=== PATIENT | male | born 1980 | race Caucasian/White ===

== ENCOUNTER 2016-11-07 06:35 | Day surgery (SDC) | payer OTHER ==
[~2016-11-07 06:35] MED LIST: ANCEF/STERILE WATER 2 GM/20 ML 2 GM/20 ML SYRINGE IV NR; NACL 0.9% 1000 ML 1,000 ML IV SCH
[2016-11-07 07:43] LABS: Basophils % (Auto) 0.7 % (0.0-1.8); Eosinophils % (Auto) 7.6 % (0.0-4.3); Hematocrit 42.8 % (35.5-45.6); Hemoglobin 14.1 gm/dl (11.8-15.2); Mean Corpuscular HGB Conc 33 % (32-34); Mean Corpuscular Volume 75 fl (84-94); Platelet Count 300 K/mm3 (140-440); Red Blood Count 5.69 M/mm3 (3.65-5.03); Red Cell Distribution Width 14.9 % (13.2-15.2); White Blood Count 10.2 K/mm3 (4.5-11.0)
[2016-11-07 07:44] LABS: Mean Corpuscular Hemoglobin 25 pg (28-32)
[2016-11-07 07:51] LABS: INR 1.07 (0.87-1.13)
[2016-11-07 07:52] LABS: Partial Thromboplastin Time 32.9 Sec. (24.2-36.6)
[2016-11-07 07:55] LABS: Anion Gap 17 mmol/L; BUN/Creatinine Ratio 11.25; Blood Urea Nitrogen 9 mg/dL (9-20); Calcium 9.2 mg/dL (8.4-10.2); Carbon Dioxide 25 mmol/L (22-30); Chloride 103.6 mmol/L (98-107); Glucose 139 mg/dL (75-100); Potassium 4.2 mmol/L (3.6-5.0); Sodium 141 mmol/L (137-145)
[2016-11-07] MEDS ORDERED: NACL 0.9% 500 ML 500 ML IV SCH (08:00)
[2016-11-07] MEDS ORDERED: ANCEF/STERILE WATER 2 GM/20 ML 2 GM/20 ML SYRINGE IV ONE (08:10)
[2016-11-07] MEDS ORDERED: XYLOCAINE 2% INFILTRATI ONE (08:10)
[2016-11-07] MEDS ORDERED: HEPARIN/NS 5000 UNIT/500ML(CATH LAB) 1,000 ML IR ONE (08:10)
[2016-11-07] MEDS: VERSED ONE ×3 (08:53→08:59)
[2016-11-07] MEDS: SUBLIMAZE ONE ×3 (08:54→09:12)
--- NOTE | 2016-11-07 10:26 | Short Stay Summary ---
Short Stay Documentation Date of service: 11/07/16 - History H&P: obtained from office - Allergies and Medications Current Medications: Allergies No Known Allergies Allergy (Unverified 10/31/13 15:54) Home Medications Medication Instructions Recorded Confirmed Last Taken Type Rivaroxaban [Xarelto] 20 mg PO DAILY 11/07/16 11/07/16 11/06/16 History 20mg Active Medications Cefazolin Sodium (Ancef/Sterile Water 2 Gm/20 Ml) 2 gm in 20 mls @ 80 mls/hr IV PREOP NR PRN Reason: Protocol Stop: 11/07/16 23:59 Sodium Chloride (Nacl 0.9% 1000 Ml) 1,000 mls @ 42 mls/hr IV DIRECT CAIN Sodium Chloride (Nacl 0.9% 500 Ml) 500 mls @ 50 mls/hr IV DIRECT CAIN Last Admin: 11/07/16 08:22 Dose: 50 mls/hr - Brief post op/procedure progress note Date of procedure: 11/07/16 Pre-op diagnosis: Compression of vein Post-op diagnosis: same Procedure: BLE venogram with stent placement Anesthesia: local Surgeon: CHEYANNE DE LA GARZA Estimated blood loss: minimal Pathology: none Condition: stable - Disposition Condition at discharge: Good Disposition: DISCHARGED TO HOME OR SELFCARE Short Stay Discharge Plan Activity: advance as tolerated Weight Bearing Status: Weight Bear as Tolerated Diet: regular Wound: keep clean and dry, per your surgeon's advice Follow up with: LUCAS RUIZ MD [Primary Care Provider] - 7 Days
--- NOTE | 2016-11-07 10:34 | Operative Report ---
Operative Report Operative Report: EXAM: BILATERAL LOWER EXTREMITY VENOGRAM CLINICAL INDICATION: COMPRESSION OF VEIN, RECURRENT LOWER EXTREMITY DVT DATE: 11/07/2016 PROCEDURE: Following an expiration of the risks, benefits and alternatives; written informed consent was obtained. The patient was brought to the angiographic suite and placed in supine position on the examination table. His bilateral legs to the groin were prepped and draped in usual sterile fashion. 1 % lidocaine was used for anesthesia. Initial ultrasound evaluation of his legs demonstrated patent bilateral common femoral veins. Scattered areas of nonocclusive thrombus is present within the distal femoral veins. Under ultrasound guidance, the right common femoral vein was cannulated with a 7 cm 18-gauge needle. A 0.035 guidewire was advanced centrally under fluoroscopy. The needle was removed and a 5 Ghanaian sheath placed over the guidewire. Access to the left common femoral vein was obtained in a similar fashion and an additional 5 Ghanaian sheath placed in the left groin. Venography was performed through the sheaths. This demonstrated significant compression of the left common iliac vein. There is long segment stenosis involving the right common iliac vein. A decision was made to further evaluate with intravascular ultrasound. Intravascular ultrasound was inserted through the right sheath. Intravascular ultrasound was performed in the IVC, right common iliac vein, right external iliac vein and right common femoral vein. A 60% stenosis is present within the right common iliac vein beginning distal to the confluence and extending for approximately 4-5 cm. Vascular ultrasound was then inserted through the right sheath. Intravascular ultrasound was performed from the IVC, left common iliac vein, left external iliac vein and left common femoral vein. The IVC is widely patent. A focal 80 % stenosis is present within the left common iliac vein just distal to the anastomosis. There is prominent prestenotic dilatation and tortuosity of the distal left common iliac vein. The left external iliac vein is patent. The left common femoral vein is patent. Given the degree of stenosis stenosis and recurrent DVT secondary to extrinsic compression of the veins, a decision was made to place stents across these lesions. An 18 x 90 Wallstent was advanced through the left sheath. A second 18 x 90 Wallstent was advanced through the right sheath. The stents were deployed in kissing fashion with the distal ends of the stent at the bifurcation. The stents were then seated using 16 mm x 40 mm balloons. Post stent placement imaging demonstrated reduction of the right common iliac vein stenosis to less than 10%. There was reduction of the left common iliac vein stenosis to less than 10%. The catheters, guidewires and sheaths were removed and hemostasis achieved using manual compression. Compression dressings were then also applied. The patient tolerated the procedure well. There were no immediate post procedure complications. Conscious sedation was performed under the guidance of radiologic nursing. Continuous cardiopulmonary monitoring was utilized. IMPRESSION: 1) Bilateral lower extremity venogram demonstrating significant compression of the left common iliac vein and stenosis involving the right common iliac vein. 2) Intravascular ultrasound performed in the IVC, left common iliac vein, left external iliac vein and left common femoral vein, right common iliac vein, right external iliac vein and right common femoral vein demonstrating 80% stenosis involving the left common iliac vein and 60% long segment stenosis involving the right common iliac vein. 3) Stent placement in bilateral common iliac veins as described. Residual less than 10% stenosis.
[2016-11-07 11:09] VITALS: BP 127/85
--- NOTE | 2016-11-07 22:05 | Vascular Lab Report ---
MISCELLANEOUS VESSEL IDENTIFICATION: COMMENTS ON THE SCAN: The bilateral superficial femoral vein was identified and under real-time ultrasound guidance was cannulated. IMPRESSION: Successful ultrasound guided vein cannulation.
== END 2016-11-07 11:45 | disposition home or self-care (01) ==
LOC: OPU 06:35
PROVIDERS: ATTEND Radiology Diagnostic Radiology
DX: I87.1 Compression of vein (principal); I82.513 Chronic embolism and thrombosis of femoral vein, bilateral; I87.333 Chronic venous hypertension (idiopathic) with ulcer and inflammation of bilateral lower extremity
CPT/HCPCS: 36415; 37238; 37239; 37252; 37253; 75822; 76937; 80048; 85025; 85610; 85730; C1725; C1753; C1769; C1894; J0690; J1644; J2250; J3010; J7040; Q9967

== ENCOUNTER 2016-12-03 09:33 | Outpatient (CLI) | payer OTHER ==
--- NOTE | 2016-12-05 07:05 | Vascular Lab Report ---
Left Lower Extremity Venous Duplex Study: Reason for Exam: Pain and swelling of the left lower extremity. Comments on the Right: Left leg pain chronic nonocclusive deep venous thrombosis noted in the femoral vein. The remaining veins visualized are freely compressible without evidence of internal echogenicity. Spontaneous and phasic flow is present proximally. Comments on the Left: Acute occlusive deep venous thrombosis is noted in the popliteal vein that is extending through the entire femoral vein into the common femoral vein and deep femoral vein.. The remaining veins visualized are freely compressible without evidence of internal echogenicity. Spontaneous and phasic flow is absent proximally. Impression: Bilateral deep venous thrombosis
== END 2016-12-03 09:34 | disposition home or self-care (01) ==
LOC: EDBD → VAS 09:33 → SPVWC 09:33 → VAS 09:34 → EDBD 10:00
PROVIDERS: ATTEND Internal Medicine Hematology
DX: I82.511 Chronic embolism and thrombosis of right femoral vein (principal); I82.432 Acute embolism and thrombosis of left popliteal vein

== ENCOUNTER 2016-12-23 12:54 | Outpatient (CLI) | payer OTHER ==
--- NOTE | 2016-12-24 15:21 | Vascular Lab Report ---
LOWER EXTREMITY VENOUS DUPLEX: REASON FOR EXAM: Acute DVT.. COMMENTS ON THE RIGHT: Chronic nonocclusive deep venous thrombus in the right popliteal and superficial femoral vein. The remaining veins visualized are freely compressible without evidence of internal echogenicity. Spontaneous and phasic flow is diminished proximally. COMMENTS ON THE LEFT: There is extensive nonocclusive chronic deep venous thrombus in the left common femoral vein, superficial femoral vein, deep femoral vein, popliteal vein, and proximal left gastrocnemius vein with some acute on chronic thrombus in the common femoral vein, superficial femoral vein, deep femoral vein, and popliteal vein. The remaining veins visualized are freely compressible without evidence of internal echogenicity. Spontaneous and phasic flow is diminished proximally. IMPRESSION: Chronic right lower extremity deep venous thrombus. Acute on chronic left lower extremity deep venous thrombus. Since the last ultrasound, the clot is now nonocclusive.
== END 2016-12-23 12:55 | disposition home or self-care (01) ==
LOC: VAS 12:54
PROVIDERS: ATTEND Internal Medicine Hematology
DX: I82.403 Acute embolism and thrombosis of unspecified deep veins of lower extremity, bilateral (principal)
CPT/HCPCS: 93970

== ENCOUNTER 2017-02-05 08:32 | Outpatient (CLI) | payer OTHER ==
--- NOTE | 2017-02-06 11:58 | Vascular Lab Report ---
LOWER EXTREMITY VENOUS DUPLEX: REASON FOR EXAM: Pain. COMMENTS ON THE RIGHT: Nonocclusive thrombus is noted starting in the posterior tibial and peroneal veins, and extending through the popliteal, femoral and common femoral veins.. The remaining veins visualized are freely compressible without evidence of internal echogenicity. Spontaneous and phasic flow is present proximally. COMMENTS ON THE LEFT: Nonocclusive thrombus is noted starting in the posterior tibial and peroneal veins and extending through the popliteal, femoral and into common femoral vein. Superficial phlebitis is noted in the greater saphenous vein.. The remaining veins visualized are freely compressible without evidence of internal echogenicity. Spontaneous and phasic flow is present proximally. IMPRESSION: Bilateral chronic deep venous thrombosis
== END 2017-02-05 08:33 | disposition home or self-care (01) ==
LOC: VAS 08:32
PROVIDERS: ATTEND Internal Medicine Hematology
DX: I82.543 Chronic embolism and thrombosis of tibial vein, bilateral (principal)
CPT/HCPCS: 93970

== ENCOUNTER 2017-02-13 08:41 | Day surgery (SDC) | payer OTHER ==
[2017-02-13 09:30] LABS: Basophils % (Auto) 0.5 % (0.0-1.8); Eosinophils % (Auto) 3.1 % (0.0-4.3); Hematocrit 41.6 % (35.5-45.6); Hemoglobin 13.7 gm/dl (11.8-15.2); Mean Corpuscular HGB Conc 33 % (32-34); Mean Corpuscular Volume 75 fl (84-94); Platelet Count 342 K/mm3 (140-440); Red Blood Count 5.58 M/mm3 (3.65-5.03); Red Cell Distribution Width 14.2 % (13.2-15.2); White Blood Count 8.3 K/mm3 (4.5-11.0)
[2017-02-13 09:33] LABS: Mean Corpuscular Hemoglobin 25 pg (28-32)
[2017-02-13 09:45] LABS: Anion Gap 17 mmol/L; BUN/Creatinine Ratio 11.42; Blood Urea Nitrogen 8 mg/dL (9-20); Calcium 9.2 mg/dL (8.4-10.2); Carbon Dioxide 25 mmol/L (22-30); Chloride 100.7 mmol/L (98-107); Glucose 148 mg/dL (75-100); Potassium 3.9 mmol/L (3.6-5.0); Sodium 139 mmol/L (137-145)
[2017-02-13] MEDS ORDERED: NACL 0.9% 500 ML 500 ML IV SCH (10:00)
[2017-02-13] MEDS ORDERED: HEPARIN/NS 5000 UNIT/500ML(CATH LAB) 500 ML IR ONE (10:25)
[2017-02-13] MEDS ORDERED: HEPARIN 10,000 UNITS/10 ML ONE (10:26)
[2017-02-13] MEDS ORDERED: XYLOCAINE 2% INFILTRATI ONE (10:26)
[2017-02-13] MEDS ORDERED: ANCEF/STERILE WATER 2 GM/20 ML 2 GM/20 ML SYRINGE IV ONE (10:26)
[2017-02-13] MEDS ORDERED: VERSED ONE (10:26)
[2017-02-13] MEDS ORDERED: SUBLIMAZE ONE (10:26)
[2017-02-13 13:45] VITALS: BP 111/63
--- NOTE | 2017-02-13 14:57 | Short Stay Summary ---
Short Stay Documentation Date of service: 02/13/17 - History Principal diagnosis: BLE DVT and venous compression H&P: obtained from office - Allergies and Medications Current Medications: Allergies No Known Allergies Allergy (Verified 12/03/16 18:20) Home Medications Medication Instructions Recorded Confirmed Last Taken Type Enoxaparin [Lovenox] 100 mg SQ QAM #30 syringe 12/05/16 02/13/17 02/12/17 Rx Enoxaparin [Lovenox] 120 mg SQ QPM #30 syringe 12/05/16 02/13/17 02/12/17 Rx HYDROcodone/APAP 10-325 [[place] 1 each PO BID PRN #20 tablet 12/05/16 02/13/17 Rx 10-325 mg TAB] - Brief post op/procedure progress note Date of procedure: 02/13/17 Pre-op diagnosis: BLE DVT and venous compression Post-op diagnosis: same Procedure: Left lower extremity venogram with venoplasty Anesthesia: local Surgeon: CHEYANNE LOPEZ Estimated blood loss: minimal Pathology: none Condition: stable - Disposition Disposition: - TO HOME OR SELFCARE Short Stay Discharge Plan Activity: advance as tolerated Weight Bearing Status: Weight Bear as Tolerated Diet: regular Wound: keep clean and dry, per your surgeon's advice Additional Instructions: No driving or activities requiring mental alertness for 24 hours. Resume diet and medications as prior to admission. May return to work ThursdayFebruary 16November shower ThursdayFebruary 14. Report to MD any redness, swelling, bleeding, drainage or fever. Follow up with Dr. Lopez as needed. Follow up with: LUCAS RUIZ MD [Primary Care Provider] - 7 Days Forms: Work/School Excuse Out Patient
--- NOTE | 2017-02-13 15:02 | Operative Report ---
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 The patient was brought to the angiographic suite and placed in prone position on the examination table. Initial ultrasound evaluation of his left popliteal fossa demonstrated a patent left popliteal vein. The left popliteal fossa was prepped and draped in the usual sterile fashion. 1% lidocaine was used for anesthesia. Under ultrasound guidance, the left popliteal vein was cannulated with a 7 cm 18 -gauge needle. A 0.035 guidewire was then advanced centrally under fluoroscopy. The needle was removed and a 5 Australian sheath placed over the guidewire. Venography performed through the sheath demonstrated chronic chronic DVT with multiple areas of narrowing in excess of 70-80%. This extends throughout the entire superficial femoral vein into the common femoral vein. A 4 Australian vertebral catheter was advanced over the guidewire into the common femoral vein. Digital subtraction venography was performed which demonstrates a patent although narrowed common femoral vein. Previously placed stents in the left external iliac vein and left common iliac vein are occluded. There are massive collaterals directing flow around the occlusions. No stasis of flow is identified. Multiple attempts to re-cannulate the occluded stents were unsuccessful. The guidewire was then advanced to the margin of the stents and the catheter removed. Venoplasty was performed throughout the common femoral vein and superficial femoral vein using a 9 mm x 60 mm balloon insufflated to 4-6 arina at multiple locations. Post venoplasty imaging demonstrated reduction of the stent will areas of stenoses to proximally 20% with brisk luminal flow throughout the superficial femoral vein and common femoral vein. At this point, the catheters, guidewires and sheaths were removed and hemostasis achieved using manual compression. A compression dressing was placed which will be removed by the patient this evening. The patient tolerated the procedure well. There were no immediate post procedure complications. Conscious sedation was performed under the guidance of radiologic nursing. Continuous cardiopulmonary monitoring was utilized. IMPRESSION: 1) Left lower extremity venogram from the popliteal fossa and a catheter placed in the common femoral vein demonstrates multiple areas of chronic DVT throughout all visualized veins with scattered areas of narrowing in excess of 70-80%. 2) There is occlusion of the patient's previously placed stents within his common iliac vein and external iliac vein. The patient will be rescheduled for a procedure to length in the stents from a internal jugular vein approach. 3) Venoplasty of the common femoral vein and superficial femoral vein with residual 20% stenosis and a brisk luminal flow.
--- NOTE | 2017-02-13 15:16 | Vascular Lab Report ---
MISCELLANEOUS VESSEL IDENTIFICATION: COMMENTS ON THE SCAN: The left popliteal vein was identified and under real-time ultrasound guidance was cannulated. IMPRESSION: Successful ultrasound guided vein cannulation.
[2017-02-14] MEDS ORDERED: HEPARIN 10,000 UNITS/10 ML ONE (03:12)
[2017-02-14] MEDS ORDERED: HEPARIN/NS 5000 UNIT/500ML(CATH LAB) 500 ML IR ONE ×2 (03:12→03:20)
[2017-02-14] MEDS ORDERED: XYLOCAINE 2% INFILTRATI ONE (03:13)
[2017-02-14] MEDS ORDERED: CALAN ONE (03:13)
[2017-02-14] MEDS ORDERED: NITROGLYCERIN SYRINGE 0 ML ONE (03:13)
[2017-02-14] MEDS ORDERED: VERSED ONE (03:17)
[2017-02-14] MEDS ORDERED: SUBLIMAZE ONE (03:18)
[2017-02-14] MEDS ORDERED: NACL 0.9% 500 ML ONE (03:30)
== END 2017-02-13 14:05 | disposition home or self-care (01) ==
LOC: EDBD → CATHLABREC 08:41
PROVIDERS: ATTEND Radiology Diagnostic Radiology
DX: I82.513 Chronic embolism and thrombosis of femoral vein, bilateral (principal); I87.333 Chronic venous hypertension (idiopathic) with ulcer and inflammation of bilateral lower extremity; I87.1 Compression of vein; I87.2 Venous insufficiency (chronic) (peripheral); I82.422 Acute embolism and thrombosis of left iliac vein; Z98.890 Other specified postprocedural states
CPT/HCPCS: 36415; 37248; 75820; 76937; 80048; 85025; C1725; C1751; C1769; C1894; J0690; J1644; J2250; J3010; J7040; Q9967

== ENCOUNTER 2017-02-20 06:20 | Day surgery (SDC) | payer OTHER ==
[2017-02-20] MEDS ORDERED: NACL 0.9% 500 ML 500 ML IV SCH (07:00)
[2017-02-20 08:49] LABS: Basophils % (Auto) 0.5 % (0.0-1.8); Eosinophils % (Auto) 5.4 % (0.0-4.3); Hematocrit 40.6 % (35.5-45.6); Hemoglobin 13.4 gm/dl (11.8-15.2); Mean Corpuscular HGB Conc 33 % (32-34); Mean Corpuscular Volume 74 fl (84-94); Platelet Count 276 K/mm3 (140-440); Red Blood Count 5.49 M/mm3 (3.65-5.03); Red Cell Distribution Width 14.3 % (13.2-15.2)
[2017-02-20 08:56] LABS: Mean Corpuscular Hemoglobin 25 pg (28-32)
[2017-02-20 08:59] LABS: INR 1.1 (0.87-1.13); Partial Thromboplastin Time 33.7 Sec. (24.2-36.6)
[2017-02-20 09:07] LABS: Anion Gap 18 mmol/L; BUN/Creatinine Ratio 12.85; Blood Urea Nitrogen 9 mg/dL (9-20); Calcium 8.7 mg/dL (8.4-10.2); Carbon Dioxide 24 mmol/L (22-30); Chloride 102.4 mmol/L (98-107); Glucose 165 mg/dL (75-100); Potassium 4.2 mmol/L (3.6-5.0); Sodium 140 mmol/L (137-145)
[2017-02-20] MEDS ORDERED: HEPARIN/NS 5000 UNIT/500ML(CATH LAB) 500 ML IR ONE ×2 (10:26→11:57)
[2017-02-20] MEDS ORDERED: ANCEF/STERILE WATER 2 GM/20 ML 2 GM/20 ML SYRINGE IV ONE (10:27)
[2017-02-20] MEDS: XYLOCAINE 2% INFILTRATI ONE ×2 (10:43→11:01)
[2017-02-20] MEDS: VERSED ONE ×2 (10:44→10:49)
[2017-02-20] MEDS: SUBLIMAZE ONE ×5 (10:44→12:33)
[2017-02-20] MEDS: HEPARIN 10,000 UNITS/10 ML ONE ×2 (10:54→11:52)
[2017-02-20] MEDS ORDERED: DILAUDID ONE (11:02)
[2017-02-20] MEDS: VERSED IV ONE ×3 (11:19→12:34)
[2017-02-20] MEDS ORDERED: NARCAN 2 MG/2 ML ONE (11:24)
[2017-02-20] MEDS ORDERED: ROMAZICON IV ONE (11:25)
[2017-02-20] MEDS ORDERED: NORCO 5/325 PO ONE (14:06)
[2017-02-20 14:14] VITALS: BP 114/69
--- NOTE | 2017-02-20 15:10 | Short Stay Summary ---
Short Stay Documentation Date of service: 02/20/17 - History Principal diagnosis: Venous compression H&P: obtained from office - Allergies and Medications Current Medications: Allergies No Known Allergies Allergy (Verified 12/03/16 18:20) Home Medications Medication Instructions Recorded Confirmed Last Taken Type Enoxaparin [Lovenox] 100 mg SQ QAM #30 syringe 12/05/16 02/20/17 02/19/17 Rx Enoxaparin [Lovenox] 120 mg SQ QPM #30 syringe 12/05/16 02/20/17 02/19/17 Rx HYDROcodone/APAP 10-325 [[place] 1 each PO BID PRN #20 tablet 12/05/16 02/20/17 Rx 10-325 mg TAB] Active Medications Cefazolin Sodium (Ancef/Sterile Water 2 Gm/20 Ml) 2 gm in 20 mls @ 80 mls/hr IV PREOP NR PRN Reason: Protocol Stop: 02/20/17 23:59 Sodium Chloride (Nacl 0.9% 500 Ml) 500 mls @ 50 mls/hr IV DIRECT CAIN Last Admin: 02/20/17 08:49 Dose: 50 mls/hr - Brief post op/procedure progress note Date of procedure: 02/20/17 Pre-op diagnosis: Venous compression Post-op diagnosis: same Procedure: Venogram and venoplasty Anesthesia: local Surgeon: CHEYANNE DE LA GARZA Estimated blood loss: minimal Pathology: none Condition: stable - Disposition Condition at discharge: Good Disposition: DC-01 TO HOME OR SELFCARE Short Stay Discharge Plan Activity: advance as tolerated Weight Bearing Status: Weight Bear as Tolerated Diet: regular Wound: keep clean and dry, per your surgeon's advice Follow up with: LUCAS RUIZ MD [Primary Care Provider] - 7 Days Forms: Work/School Excuse Out Patient, Post Arteriogram Instruct
--- NOTE | 2017-02-20 15:20 | Operative Report ---
Operative Report Operative Report: EXAM: ULTRASOUND AND FLUOROSCOPIC GUIDED VENOGRAM OF THE PELVIC VEINS, VENOPLASTY CLINICAL INDICATION: PATIENT WITH EXTRINSIC COMPRESSION INVOLVING PREDOMINANTLY HIS LEFT COMMON ILIAC VEIN RESULTING IN SUBSEQUENT OCCLUSION OF HIS LEFT COMMON ILIAC VEIN AND LEFT EXTERNAL ILIAC VEIN DESPITE PREVIOUSLY PLACED STENTS. DATE: 02/20/2017 PROCEDURE: Following an explanation of the risks, benefits and alternatives; written informed consent was obtained. The patient was brought to the injury graphic suite and placed in supine position on the examination table. Initial ultrasound evaluation of his right neck and bilateral groins devastated a widely patent right internal jugular vein and bilateral common femoral veins. The patient's right neck and bilateral groins were prepped and draped in the usual sterile fashion. 1% lidocaine was used for anesthesia. Under ultrasound guidance, the right internal jugular vein was cannulated with a 7 cm 18-gauge needle. A 0.035 guidewire was advanced into the IVC under fluoroscopy and the needle exchanged for a 5 Israeli sheath. A 4 Israeli vertebral catheter was then advanced over the guidewire and together the guidewire and catheter were advanced into the infrarenal IVC. Venography was performed for anatomic localization. Fluoroscopic images demonstrated previously placed stents within the common iliac and external iliac veins bilaterally. The left stent and a straight significant compression along the superior aspect of the stent. The vertebral catheter and guidewire were then advanced towards the left side. The guidewire and catheter advanced alongside of the previously placed stent. Angiography was performed which demonstrates extensive collateral formation however, there is complete occlusion of previously placed stents with chronic appearing thrombus. Attempt to cannulate the proximal end of the stent using the vertebral catheter and guidewire were unsuccessful therefore decision was made to access the left groin. Under ultrasound guidance, the left common femoral vein was cannulated with a 7 cm 18-gauge needle. A 0.035 guidewire was advanced centrally under fluoroscopy and the needle exchanged for a 5 Israeli vascular sheath. A 4 Israeli vertebral catheter was then advanced over the guidewire and together the guidewire and catheter were advanced as distally as a would go. Digital subtraction venography performed through the sheath demonstrates complete occlusion of the previously placed stent. There is extensive pelvic collateral formation with collaterals nearly the size of the galena iliac veins. Multiple attempts to cannulate the occluded distal end of the stent were unsuccessful. Returning to the internal jugular vein sheath, the 5 Israeli sheath was exchanged for a 10 Israeli 30 cm sheath through which a 6 Israeli MPA guide cath and 0.035 guidewire were advanced over the wire under fluoroscopy. MPA guide cath was advanced to the Of the thrombus from the proximal end of the stent. The guidewire was advanced minimally into the thrombus however, there was significant herniation. A decision was made to place a 7 Israeli sheath through the 10 Israeli sheath to allow greater support. Once this was done, the MPA guide cath was advanced and the guidewire advanced into the thrombus. The MPA guide cath was removed and a 0.035 Trailblazer catheter advanced over the guidewire. Together the Trailblazer catheter and 0.035 guidewire were then manipulated some degree of difficulty through the thrombus into the common femoral vein. Venography was performed which demonstrates intraluminal positioning. The 0.035 guidewire was exchanged for a 0.018 guidewire and contrast was injected through a 2 week while pulling back the Trailblazer catheter. This demonstrated that the catheter and guidewire were within the lumen and within the central aspect of the stents. Venography was then performed in the left common iliac vein using a 5 mm x 80 mm balloon. The balloon would not advance into the left external iliac vein given the tortuosity of the vasculature At this point, the catheters, guidewires and she's were removed and hemostasis achieved using manual compression. Compression dressings were also placed in the groin. The patient tolerated the procedure well. There were no immediate post procedure competitions. Conscious sedation was performed under the guidance of radiologic nursing. Continuous cardiopulmonary monitoring was utilized. IMPRESSION: 1) Pelvic venogram with catheter placement in the IVC, left common iliac vein, left common femoral vein demonstrating complete occlusion of previously placed stents with extrinsic compression of the left common iliac vein. 2) Cannilization of the previously placed stents as described. 3) Venoplasty of the left common iliac vein as described. 4) Given the extensive length and complexity of the procedure, the patient will need to return in approximately 2 months for additional dilatation of his left iliac veins. The patient remains on anticoagulation
--- NOTE | 2017-02-23 13:50 | Vascular Lab Report ---
MISCELLANEOUS VESSEL IDENTIFICATION: COMMENTS ON THE SCAN: The right interna jugular and left common femoral veins were identified and under real-time ultrasound guidance were cannulated. IMPRESSION: Successful ultrasound guided vein cannulation.
== END 2017-02-20 15:00 | disposition home or self-care (01) ==
LOC: EDBD → CATHLABREC 06:20
PROVIDERS: ATTEND Radiology Diagnostic Radiology
DX: I87.1 Compression of vein (principal); I87.2 Venous insufficiency (chronic) (peripheral); I82.513 Chronic embolism and thrombosis of femoral vein, bilateral; I87.333 Chronic venous hypertension (idiopathic) with ulcer and inflammation of bilateral lower extremity; Z98.890 Other specified postprocedural states
CPT/HCPCS: 36415; 37248; 75820; 76937; 80048; 85025; 85610; 85730; C1725; C1751; C1769; C1887; C1894; J0690; J1170; J1644; J2250; J3010; Q9967; J2310

== ENCOUNTER 2017-03-05 08:41 | Outpatient (CLI) | payer OTHER ==
--- NOTE | 2017-03-05 16:33 | Vascular Lab Report ---
LOWER EXTREMITY VENOUS DUPLEX: REASON FOR EXAM: Pain and swelling of the lower extremities. COMMENTS ON THE RIGHT: Nonocclusive DVT in femoral vein, popliteal and posterior tibial. The remaining veins visualized are freely compressible without evidence of internal echogenicity. Spontaneous and phasic flow is present proximally. COMMENTS ON THE LEFT: Resolution of of DVT in common femoral, superficial femoral and popliteal veins. Limited left calf and visualization due to edema and bandages. Spontaneous and phasic flow is absent proximally. IMPRESSION: Bilateral lower extremity DVTs
== END 2017-03-05 08:42 | disposition home or self-care (01) ==
LOC: VAS 08:41
PROVIDERS: ATTEND Internal Medicine Hematology
DX: I82.431 Acute embolism and thrombosis of right popliteal vein (principal); I82.411 Acute embolism and thrombosis of right femoral vein; I82.441 Acute embolism and thrombosis of right tibial vein
CPT/HCPCS: 93970